=== PATIENT | female | born 1940 | race Caucasian/White ===

== ENCOUNTER 2018-01-23 06:32 | Day surgery (SDC) | payer OTHER ==
[2018-01-23] MEDS ORDERED: PROPOFOL 20 ML (13:50)
[2018-01-23] MEDS ORDERED: LIDOCAINE 2% (SDV) 5 ML INJ (13:50)
[2018-01-23] MEDS ORDERED: ONDANSETRON 4 MG INJ (13:51)
[2018-01-23] MEDS ORDERED: METOCLOPRAMIDE 10 MG INJ (13:51)
[2018-01-23] MEDS ORDERED: OXYCODONE/ACETAMINOPHEN (5/325) TAB PO ×2 (14:00)
[2018-01-23] MEDS ORDERED: MIDAZOLAM 1 MG/ML 2 ML INJ IV (14:00)
[2018-01-23] MEDS ORDERED: FENTAnyl 50 MCG/ML VIAL IV ×3 (14:00)
[2018-01-23] MEDS ORDERED: DIPHENHYDRAMINE 50 MG INJ IV (14:00)
[2018-01-23] MEDS ORDERED: LABETALOL HCL 20MG INJ IV (14:00)
[2018-01-23] MEDS ORDERED: hydrALAzine 20 MG INJ IV (14:00)
[2018-01-23] MEDS ORDERED: METOCLOPRAMIDE 10 MG INJ IV (14:00)
[2018-01-23] MEDS ORDERED: EPHEDrine SULFATE 50 MG/5 ML SYG IV (14:00)
[2018-01-23] MEDS ORDERED: HYDROmorphONE 1 MG/5 ML IV SYRINGE IV ×3 (14:00)
[2018-01-23] MEDS ORDERED: CEFAZOLIN 1 GM INJ (14:15)
[2018-01-23] MEDS: LIDOCAINE 1%/EPI 30 ML INJ (14:16)
[2018-01-23] MEDS: ONDANSETRON 4 MG INJ IV (14:55)
[2018-01-23] MEDS: MEPERIDINE 25 MG INJ IV (14:55)
== END 2018-01-23 16:15 | disposition home or self-care (01) ==
LOC: SUR 06:32 → SDS 06:32 → SUR 16:15
DX: L91.0 Hypertrophic scar (principal); I10 Essential (primary) hypertension; E11.9 Type 2 diabetes mellitus without complications; E03.9 Hypothyroidism, unspecified; E78.5 Hyperlipidemia, unspecified
CPT/HCPCS: 11446; 82962; 88305